=== PATIENT | male | born 1940 | race Asian ===

== ENCOUNTER 2022-11-27 23:17 | Inpatient (IN) | payer BC ==
[2022-11-27 23:56] LABS: #Eosinphils 0.1 10x3/uL (0.0-0.5); #Monocytes 0.5 10x3/uL (0.0-1.1); #Neutrophils 2.3 10x3/uL (1.5-8.4); %Basophils 0.3 % (0.0-2.0); %Eosinophils 1.8 % (0.0-6.0); %Lymphocytes 27.7 % (18.0-47.0); %Monocytes 12.1 % (0.0-10.0); %Neutrophils 57.8 % (40.0-75.0); Mean Corpuscular HGB CONC 34.6 g/dL (32.0-36.0); Mean Corpuscular Hemoglobin 33.1 pg (27.0-33.0); Mean Corpuscular Volume 95.7 fl (81.2-95.1); Mean Platelet Volume 9.7 fl (7.4-10.4); Platelet Count 159 10x3/uL (150-450); RBC Distribution Width 12.1 % (11.5-14.5); Red Blood Cell (RBC) Count 4.23 10x6/uL (4.32-5.72)
[2022-11-28 00:09] LABS: ALT (SGPT) 18 U/L (8-55); AST (SGOT) 27 U/L (5-34); Albumin 4.3 g/dL (3.4-4.8); Alkaline Phosphatase 33 U/L (40-110); Anion Gap 14 mmol/L (10-20); BUN (Urea Nitrogen) 15 mg/dL (8.4-25.7); Bilirubin, Total 1.2 mg/dL (0.2-1.2); Calc. Creatinine Clearance 0 mL/min (70-130); Calcium 8.8 mg/dL (7.8-10.44); Carbon Dioxide 25 mmol/L (23-31); Chloride 93 mmol/L (98-107); Estimated GFR 87; Globulin 2.9 g/dL (2.4-3.5); Glucose 105 mg/dL (83-110); Potassium 3.9 mmol/L (3.5-5.1); Protein, Total 7.2 g/dL (5.8-8.1); Sodium 128 mmol/L (136-145)
[2022-11-28] MEDS ORDERED: cloNIDine 0.1 MG TAB ONE (00:09)
[2022-11-28] MEDS ORDERED: Calcium Carbonate 500 MG ChewTAB PO PRN (01:06)
[2022-11-28] MEDS ORDERED: Ondansetron PF 4 MG/2 ML Vial IVP PRN (01:06)
[2022-11-28] MEDS ORDERED: Senokot S 8.6-50 MG TAB PO PRN (01:06)
[2022-11-28] MEDS ORDERED: Guaifenesin DM 100-10/5 ML UDCUP PO PRN (01:06)
[2022-11-28] MEDS ORDERED: Acetaminophen 325 MG TAB PO PRN (01:06)
[2022-11-28 02:29] VITALS: BMI 22.5
[2022-11-28] MEDS ORDERED: Famotidine/PF 20 mg/2ml Vial SLOW IVP SCH (03:00)
[2022-11-28] MEDS ORDERED: Sodium Chloride 0.9% 200 ML IV SCH (03:00)
[2022-11-28] MEDS ORDERED: FLU VACC QS2022-23(65YR UP)/PF 240 MCG/0.7 ML SYRINGE IM ONE (04:30)
[2022-11-28 06:14] LABS: Bilirubin Neg (Negative); Blood, Urine Negative (Negative); Clarity Clear (Clear); Glucose, Urine (Dipstick) Normal (Negative); Ketone, Urine Negative (Negative); Leukocyte Negative (Negative); Nitrite Negative (Negative); Protein, Urine (Dipstick) Negative (Neg-Trace); Urobilinogen Normal mg/dL (Less than 2)
[2022-11-28 06:35] LABS: Bacteria/HPF None Seen HPF (None Seen); RBC/HPF 0-3 HPF (0-3); Squamous Epithelial 0-3 HPF (0-3); WBC/HPF 0-3 HPF (0-3)
[2022-11-28 06:38] LABS: Anion Gap 11 mmol/L (10-20); BUN (Urea Nitrogen) 12 mg/dL (8.4-25.7); Calc. Creatinine Clearance 68 mL/min (70-130); Calcium 8.8 mg/dL (7.8-10.44); Carbon Dioxide 27 mmol/L (23-31); Chloride 97 mmol/L (98-107); Estimated GFR 89; Glucose 89 mg/dL (83-110); Potassium 3.2 mmol/L (3.5-5.1); Sodium 132 mmol/L (136-145)
[2022-11-28] MEDS ORDERED: Potassium Chloride 20 MEQ TAB PO SCH (08:00)
[2022-11-28] MEDS: Colchicine 0.6 MG TAB PO SCH ×2 (10:18→20:45)
[2022-11-28] MEDS: Aspirin 81 mg Enteric Coated Tablet PO SCH (10:18)
[2022-11-28] MEDS: Famotidine 20 MG TAB PO SCH ×2 (10:19→20:45)
[2022-11-28] MEDS: cloNIDine 0.1 MG TAB PO SCH ×2 (10:20→20:45)
[2022-11-28] MEDS: Lisinopril 10 MG TAB PO SCH ×2 (10:20→20:44)
[2022-11-28] MEDS: Carvedilol 6.25 MG TAB PO SCH ×2 (10:20→16:19)
[2022-11-28] MEDS: Mirtazapine 15 MG TAB PO SCH (20:45)
[2022-11-29] MEDS ORDERED: Electrolyte Replacement Protocol 1 EACH FS SCH (07:45)
[2022-11-29] MEDS ORDERED: Magnesium 2 GM/50 ML(in water) 2 GM in Premix Bag 1 BAG IVPB SCH (08:15)
[2022-11-29 08:28] LABS: Anion Gap 13 mmol/L (10-20); BUN (Urea Nitrogen) 18 mg/dL (8.4-25.7); Calc. Creatinine Clearance 47 mL/min (70-130); Calcium 9.2 mg/dL (7.8-10.44); Carbon Dioxide 28 mmol/L (23-31); Chloride 98 mmol/L (98-107); Estimated GFR 68; Glucose 95 mg/dL (83-110); Potassium 3.3 mmol/L (3.5-5.1); Sodium 136 mmol/L (136-145)
[2022-11-29] MEDS: Lisinopril 10 MG TAB PO SCH ×2 (08:35→21:01)
[2022-11-29] MEDS: Carvedilol 6.25 MG TAB PO SCH ×2 (08:35→18:12)
[2022-11-29] MEDS: cloNIDine 0.1 MG TAB PO SCH ×2 (08:35→21:00)
[2022-11-29] MEDS: Colchicine 0.6 MG TAB PO SCH ×2 (08:35→21:01)
[2022-11-29] MEDS: Famotidine 20 MG TAB PO SCH ×2 (08:35→21:00)
[2022-11-29] MEDS: Aspirin 81 mg Enteric Coated Tablet PO SCH (08:35)
[2022-11-29] MEDS ORDERED: Potassium Chloride 20 MEQ TAB PO SCH (09:00)
[2022-11-29 15:21] LABS: Potassium 4.1 mmol/L (3.5-5.1)
[2022-11-29] MEDS: Mirtazapine 15 MG TAB PO SCH (21:00)
[2022-11-30 05:54] LABS: Phosphorus 4.2 mg/dL (2.3-4.7)
[2022-11-30 05:57] LABS: Anion Gap 12 mmol/L (10-20); BUN (Urea Nitrogen) 23 mg/dL (8.4-25.7); Calc. Creatinine Clearance 54 mL/min (70-130); Calcium 8.8 mg/dL (7.8-10.44); Carbon Dioxide 26 mmol/L (23-31); Chloride 103 mmol/L (98-107); Estimated GFR 81; Glucose 90 mg/dL (83-110); Magnesium 2.3 mg/dL (1.6-2.6); Potassium 3.9 mmol/L (3.5-5.1); Sodium 137 mmol/L (136-145)
[2022-11-30] MEDS: cloNIDine 0.1 MG TAB PO SCH (09:07)
[2022-11-30] MEDS: Famotidine 20 MG TAB PO SCH ×2 (09:08→21:38)
[2022-11-30] MEDS: Aspirin 81 mg Enteric Coated Tablet PO SCH (09:08)
[2022-11-30] MEDS: Lisinopril 10 MG TAB PO SCH (09:08)
[2022-11-30] MEDS: Carvedilol 6.25 MG TAB PO SCH (09:08)
[2022-11-30] MEDS: Colchicine 0.6 MG TAB PO SCH ×2 (09:08→21:39)
[2022-11-30] MEDS ORDERED: Sodium Chloride 0.9% 500 ML IV SCH (16:00)
[2022-11-30] MEDS: Mirtazapine 15 MG TAB PO SCH (21:38)
[2022-12-01] MEDS: Colchicine 0.6 MG TAB PO SCH (08:50)
[2022-12-01] MEDS: Famotidine 20 MG TAB PO SCH (08:51)
[2022-12-01] MEDS: Aspirin 81 mg Enteric Coated Tablet PO SCH (08:51)
[2022-12-01] MEDS ORDERED: Carvedilol 6.25 MG TAB PO SCH ×2 (09:00→17:00)
[2022-12-01 16:59] VITALS: TEMP 97.5
[2022-12-01 18:20] VITALS: BP 168/87
== END 2022-12-01 19:31 | DRG 948 ==
LOC: CSHERS 23:17 → CSHTELE 11-28 01:06 → INTOOBSV 11-28 01:06 → OBSVTOIN 11-29 14:14
PROVIDERS: ADMIT Student in an Organized Health Care Education/Training Program; ATTEND Family Medicine
DX: R53.1 Weakness (principal); I31.39 Other pericardial effusion (noninflammatory); E87.1 Hypo-osmolality and hyponatremia; I69.351 Hemiplegia and hemiparesis following cerebral infarction affecting right dominant side; R53.81 Other malaise; E86.9 Volume depletion, unspecified; E78.5 Hyperlipidemia, unspecified; Z20.822 Contact with and (suspected) exposure to COVID-19; I10 Essential (primary) hypertension; N40.0 Benign prostatic hyperplasia without lower urinary tract symptoms; Z98.890 Other specified postprocedural states; Z79.899 Other long term (current) drug therapy
CPT/HCPCS: 36415; 36416; 70551; 71045; 80048; 80053; 81001; 83735; 84100; 84484; 85025; 93005; 93306; 94760; 96372; 96374; 96375; G0378; J1650; J3475; J7030; S0028; U0003; U0005